=== PATIENT | female | born 1960 | race Caucasian/White ===

== ENCOUNTER 2020-05-19 19:27 | Emergency (ER) | payer BC, OTHER ==
--- NOTE | 2020-05-19 20:42 | EDM.PDOC ---
ED HPI GENERAL MEDICAL PROBLEM - General Chief Complaint: Chest Pain Stated Complaint: RIGHT SIDE CHEST PAIN; RIGHT ARM NUMBNESS Time Seen by Provider: 05/19/20 20:38 Source of Information: Reports: Patient History Limitations: Reports: No Limitations - History of Present Illness INITIAL COMMENTS - FREE TEXT/NARRATIVE: Molly is a 59 yo female with right sided chest pain x 1 week.[place] like a bruise at the onset,progressively got worse in intensity. Breathing is tight,No improvement.Today it has been associated with right arm numbness w/o weakness. No fever,cough or any COVID-19 symptoms. She has a h/o HLD,and microvascular hemangiomas discovered a few years ago. Denies any recent headache,weakness - Related Data Allergies Allergy/AdvReac Type Severity Reaction Status Date / Time venom-honey bee Allergy Airway Verified 05/19/20 19:51 [bee venom (honey bee)] Tightness Home Meds: Home Meds Multivitamin [Multivitamins] 1 tab PO DAILY 05/30/14 [History] atorvaSTATin [Lipitor] 10 mg PO DAILY 05/30/14 [History] Levothyroxine 75 mcg PO DAILY 05/19/20 [History] Past Medical History HEENT History: Reports: Impaired Vision Cardiovascular History: Reports: High Cholesterol C.O.D. CLERK History: Reports: Other C.O.D. CLERK History: Neurological History: Reports: Migraines Psychiatric History: Reports: Anxiety, Depression Endocrine/Metabolic History: Reports: Hypothyroidism - Past Surgical History GI Surgical History: Reports: Appendectomy, Colonoscopy Neurological Surgical History: Reports: Other (See Below) Other Neurological Surgeries/Procedures: Neuro surgery for cavernous angioma. Social & Family History - Tobacco Use Tobacco Use Status *Q: Never Tobacco User - Caffeine Use Caffeine Use: Reports: Tea - Recreational Drug Use Recreational Drug Use: No ED ROS GENERAL - Review of Systems Review Of Systems: Comprehensive ROS is negative, except as noted in HPI. ED EXAM, GENERAL - Physical Exam Exam: See Below Exam Limited By: No Limitations General Appearance: Alert, WD/WN, No Apparent Distress Ear Exam: Bilateral Ear: Auricle Normal, Canal Normal, TM normal Nose: Normal Inspection Throat/Mouth: Normal Inspection Head: Atraumatic Neck: Normal Inspection Respiratory/Chest: No Respiratory Distress, Lungs Clear, Other (Tender rigjht pectoral muscle) Cardiovascular: Normal Peripheral Pulses, Regular Rate, Rhythm, No Edema #1 Interpretation EKG Date: 05/19/20 Rhythm: NSR [place]: Normal Course - Vital Signs Last Recorded V/S: Last Vital Signs Temp 97.9 F 05/19/20 19:30 Pulse 85 05/19/20 19:30 Resp 16 05/19/20 19:30 BP 155/72 H 05/19/20 19:30 Pulse Ox 100 05/19/20 19:30 - Orders/Labs/Meds Orders: Active Orders 24 hr Category Date Time Status EKG Documentation Completion [RC] ASDIRECTED Care 05/19/20 19:46 Active CXR [Chest 2V] [CR] Stat Exams 05/19/20 19:45 Taken EKG 12 Lead [EK] Routine Ther 05/19/20 19:45 Ordered Labs: Laboratory Tests 05/19/20 05/19/20 05/19/20 Range/Units 19:55 19:55 19:55 WBC 6.7 (4.5-12.0) X10-3/uL RBC 4.47 (3.23-5.20) x10(6)uL Hgb 14.1 (11.5-15.5) g/dL Hct 41.6 (30.0-51.3) % MCV 93.1 (80-96) fL MCH 31.5 (27.7-33.6) pg MCHC 33.8 (32.2-35.4) g/dL RDW 12.2 (11.5-15.5) % Plt Count 257 (125-369) X10(3)uL MPV 8.0 (7.4-10.4) fL Neut % (Auto) 56.3 (46-82) % Lymph % (Auto) 35.0 (13-37) % [place] % (Auto) 7.3 (4-12) % Eos % (Auto) 1 (1.0-5.0) % Baso % (Auto) 1 (0-2) % Neut # (Auto) 3.8 (1.6-8.3) # Lymph # (Auto) 2.3 (0.6-5.0) # Sampson # (Auto) 0.5 (0.0-1.3) # Eos # (Auto) 0.1 (0.0-0.8) # Baso # (Auto) 0.0 (0.0-0.2) # D-Dimer, Quantitative 0.19 (0.0-0.59) mg/LFEU Sodium 142 (135-145) mmol/L Potassium 4.0 (3.5-5.3) mmol/L Chloride 103 (100-110) mmol/L Carbon Dioxide 32 (21-32) mmol/L BUN 23 H (7-18) mg/dL Creatinine 0.8 (0.55-1.02) mg/dL Est Cr Clr Drug Dosing 64.01 mL/min Estimated GFR (MDRD) > 60 (>60) BUN/Creatinine Ratio 28.8 H (9-20) Glucose 129 H (80-116) mg/dL Calcium 9.4 (8.6-10.2) mg/dL Total Bilirubin 0.5 (0.1-1.3) mg/dL AST 17 (5-25) IU/L ALT 25 (12-36) U/L Alkaline Phosphatase 87 (56-112) IU/L Troponin I (4.0-60.3) pg/mL Total Protein 7.3 (6.0-8.0) g/dL Albumin 3.8 (3.5-5.2) g/dL Globulin 3.5 g/dL Albumin/Globulin Ratio 1.1 05/19/ Range/Units 19:55 WBC (4.5-12.0) X10-3/uL RBC (3.23-5.20) x10(6)uL Hgb (11.5-15.5) g/dL Hct (30.0-51.3) % MCV (80-96) fL MCH (27.7-33.6) pg MCHC (32.2-35.4) g/dL RDW (11.5-15.5) % Plt Count (125-369) X10(3)uL MPV (7.4-10.4) fL Neut % (Auto) (46-82) % Lymph % (Auto) (13-37) % Sampson % (Auto) (4-12) % Eos % (Auto) (1.0-5.0) % Baso % (Auto) (0-2) % Neut # (Auto) (1.6-8.3) # Lymph # (Auto) (0.6-5.0) # Sampson # (Auto) (0.0-1.3) # Eos # (Auto) (0.0-0.8) # Baso # (Auto) (0.0-0.2) # D-Dimer, Quantitative (0.0-0.59) mg/LFEU Sodium (135-145) mmol/L Potassium (3.5-5.3) mmol/L Chloride (100-110) mmol/L Carbon Dioxide (21-32) mmol/L BUN (7-18) mg/dL Creatinine (0.55-1.02) mg/dL Est Cr Clr Drug Dosing mL/min Estimated GFR (MDRD) (>60) BUN/Creatinine Ratio (9-20) Glucose (80-116) mg/dL Calcium (8.6-10.2) mg/dL Total Bilirubin (0.1-1.3) mg/dL AST (5-25) IU/L ALT (12-36) U/L Alkaline Phosphatase (56-112) IU/L Troponin I 7.1 (4.0-60.3) pg/mL Total Protein (6.0-8.0) g/dL Albumin (3.5-5.2) g/dL Globulin g/dL Albumin/Globulin Ratio Departure - Departure Time of Disposition: 20:41 Disposition: Home, Self-Care 01 Condition: Good Clinical Impression: Chest pain in adult Referrals: Leeanne Estrada MD [Primary Care Provider] - Sepsis Event Note (ED) - Evaluation Sepsis Screening Result: No Definite Risk - Focused Exam Vital Signs: Vital Signs Temp Pulse Resp BP Pulse Ox 05/19/20 19:30 97.9 F 85 16 155/72 H 100 - Problem List & Annotations (1) Chest pain in adult SNOMED Code(s): 46829633 Code(s): R07.9 - CHEST PAIN, UNSPECIFIED Status: Acute Current Visit: Yes - Problem List Review Problem List Initiated/Reviewed/Updated: Yes - My Orders Last 24 Hours: My Active Orders 05/19/20 19:45 CXR [Chest 2V] [CR] Stat EKG 12 Lead [EK] Routine 05/19/20 19:46 EKG Documentation Completion [RC] ASDIRECTED - Assessment/Plan Last 24 Hours: My Active Orders 05/19/20 19:45 CXR [Chest 2V] [CR] Stat EKG 12 Lead [EK] Routine 05/19/20 19:46 EKG Documentation Completion [RC] ASDIRECTED Plan: CXR was normal. All labs normal DC home on NSAIDs. See PCP tomorrow
--- NOTE | 2020-05-19 21:43 | CR ---
CHEST TWO VIEWS INDICATION: Chest pain. PA and lateral views of the chest reveal the heart to be normal in size and shape. Mediastinum was unremarkable. Minimal dextroconvex scoliosis of the mid thoracic spine is noted. Minimal compression anteriorly is noted at an upper middle thoracic spine vertebral body, likely old. It should be correlated clinically. Overlying snaps and EKG leads noted. An active infiltrate or effusion was not suggested. IMPRESSION: No acute process. MTDD
== END 2020-05-19 21:15 | disposition home or self-care (01) ==
LOC: FB.ED 19:27
DX: R07.9 Chest pain, unspecified (principal); E03.9 Hypothyroidism, unspecified; E78.5 Hyperlipidemia, unspecified; Z91.030 Bee allergy status; Z90.49 Acquired absence of other specified parts of digestive tract; Z79.899 Other long term (current) drug therapy
CPT/HCPCS: 36415; 71046; 80053; 84484; 85025; 85379; 93005; 93010; 99283; 99285-25

== ENCOUNTER 2022-07-16 08:03 | Day surgery (SDC) | payer OTHER ==
[~2022-07-16 08:03] MED LIST: Lactated Ringers 1,000 ML IV SCH; Sodium Chloride 0.9% 10 ML Syringe FLUSH PRN
[2022-07-16] MEDS ORDERED: Propofol 200 MG/20 ML SDV IV ONE (08:04)
[2022-07-16] MEDS ORDERED: Lactated Ringers 1,000 ML IV ONE (08:04)
== END 2022-07-16 11:23 | disposition home or self-care (01) ==
LOC: FB.SDS 08:03
PROVIDERS: ATTEND Surgery
DX: Z12.11 Encounter for screening for malignant neoplasm of colon (principal); E03.9 Hypothyroidism, unspecified; E78.5 Hyperlipidemia, unspecified; F41.9 Anxiety disorder, unspecified; Z79.899 Other long term (current) drug therapy; Z80.0 Family history of malignant neoplasm of digestive organs; Z79.890 Hormone replacement therapy; Z98.890 Other specified postprocedural states
CPT/HCPCS: 00812-QZ; J2704; J7120